=== PATIENT | female | born 1965 | race Caucasian/White ===

== ENCOUNTER 2017-03-17 09:25 | Inpatient (IN) | payer MEDICAID ==
[~2017-03-17] VITALS: Ht 165.1 cm; Wt 94.9 kg
[2017-03-17] MEDS ORDERED: METF500T4 PO (12:13)
[2017-03-17] MEDS ORDERED: LOSA25TA21 PO (12:13)
[2017-03-17] MEDS ORDERED: DULO20CA30 PO (12:13)
[2017-03-17 12:22] LABS: BASOPHILS % (AUTO) 0.2 % (0.0-2.0); HEMATOCRIT 44.1 % (36-46); HEMOGLOBIN 15.3 g/dL (12.0-16.0); LYMPHOCYTES # (AUTO) 1.3 K/uL (1.0-4.8); LYMPHOCYTES % (AUTO) 15.3 % (22.0-44.0); MEAN CORPUSCULAR HEMOGLOBIN 28.5 pg (26.0-34.0); MEAN CORPUSCULAR HGB CONC 34.6 G/dL (31.0-37.0); MEAN CORPUSCULAR VOLUME 82 fL (80-100); MONOCYTES # (AUTO) 0.4 K/uL (0.1-1.0); MONOCYTES % (AUTO) 4.4 % (2.0-9.0); NEUTROPHILS # (AUTO) 6.4 K/uL (1.8-7.7); NEUTROPHILS % (AUTO) 78.1 % (40.0-70.0); PLATELET COUNT (AUTO) 293 K/uL (150-450); RED BLOOD CELL COUNT(AUTO) 5.35 MIL/uL (4.00-5.20); RED CELL DISTRIBUTION WIDTH 14.5 % (11.5-14.5)
[2017-03-17] MEDS ORDERED: HALOPERIDOL 5 MG TABLET PO ONE (12:30)
[2017-03-17] MEDS ORDERED: LORazepam 2 MG TABLET PO ONE (12:30)
[2017-03-17 12:37] LABS: ANION GAP 8 mmol/L (8-16); CALCIUM, TOTAL 9.4 mg/dL (8.8-10.5); CARBON DIOXIDE 29 mmol/L (22-29); CHLORIDE 99 mmol/L (98-107); CREATININE 1.06 mg/dL (0.60-1.30); GLOMERULAR FILTR. RATE CALC 55 mL/min (>60); GLUCOSE,RANDOM 223 mg/dL (70-110); POTASSIUM 3.9 mmol/L (3.5-5.1); SODIUM SERUM 136 mmol/L (136-145); UREA NITROGEN, BLOOD 13 mg/dL (7-18)
[2017-03-17 12:38] LABS: AMPHET/METH SCREEN,URINE POSITIVE (NEGATIVE); BARBITURATE SCREEN, URINE NEGATIVE (NEGATIVE); BENZODIAZEPINES SCREEN,URINE NEGATIVE (NEGATIVE); CANNABINOID SCREEN,URINE NEGATIVE (NEGATIVE); COCAINE SCREEN,URINE NEGATIVE (NEGATIVE); METHADONE SCREEN, URINE NEGATIVE (NEGATIVE); OPIATE SCREEN,URINE NEGATIVE (NEGATIVE)
[2017-03-17 12:42] LABS: PHENCYCLIDINE SCREEN,URINE NEGATIVE (NEGATIVE)
[2017-03-17 12:42] LABS: ALANINE AMINOTRANSFERASE 40 U/L (12-78); ALBUMIN 3.8 g/dL (3.4-5.0); ALKALINE PHOSPHATASE 95 U/L (46-116); ASPARTATE AMINOTRANSFERASE 24 U/L (15-37); BILIRUBIN,TOTAL 0.7 mg/dL (0.1-1.0); TOTAL PROTEIN, SERUM 8.1 g/dL (6.4-8.2)
[2017-03-17 12:47] LABS: APPEARANCE,URINE CLOUDY (CLEAR); GLUCOSE, URINE (UA) 100 mg/dL (NEGATIVE); KETONES,URINE TRACE mg/dL (NEGATIVE); LEUKOCYTE ESTERASE ,URINE TRACE (NEGATIVE); NITRATE,URINE NEGATIVE (NEGATIVE); OCCULT BLOOD,URINE NEGATIVE (NEGATIVE); PH,URINE 5.5 (5.0-8.0); PROTEIN,URINE NEGATIVE (NEGATIVE)
[2017-03-17 13:01] LABS: BILIRUBIN,URINE PRELIM. POSITIVE (NEGATIVE)
[2017-03-17 13:09] LABS: BACTERIA,URINE None Seen /HPF (None Seen); RBC,URINE 0-2 /HPF (0-2)
[2017-03-17 13:10] LABS: SQUAMOUS EPITHELIAL CELL,UR Moderate /LPF (None Seen)
[2017-03-17] MEDS ORDERED: HALOPERIDOL 5 MG TABLET PO PRN (13:30)
[2017-03-17] MEDS ORDERED: LORazepam 2 MG TABLET PO PRN (13:30)
[2017-03-17] MEDS ORDERED: ZOLPIDEM TARTRATE 10 MG TABLET PO PRN (13:30)
[2017-03-17 14:53] VITALS: BP 125/78
[2017-03-17] MEDS ORDERED: INFLUENZA VIRUS VACCINE QVS 2017-18 (3YR+)/PF 60 MCG/0.5 ML SYRINGE IM ONE (15:30)
[2017-03-17 16:03] VITALS: BP 124/82
[2017-03-17] MEDS ORDERED: ONDANSETRON HCL 4 MG TABLET PO PRN (19:15)
[2017-03-17] MEDS ORDERED: PETROLATUM,WHITE 71 GM JELLY TP PRN (19:15)
[2017-03-17] MEDS ORDERED: ALBUTEROL SULFATE HFA 90 MCG/PUFF 8 GM INHALER IH PRN (19:15)
[2017-03-17] MEDS ORDERED: LOPERAMIDE HCL 2 MG CAPSULE PO PRN (19:15)
[2017-03-17] MEDS ORDERED: CloNIDine HCL 0.1 MG TABLET PO PRN (19:15)
[2017-03-17] MEDS ORDERED: ACETAMINOPHEN 325 MG TABLET PO PRN (19:15)
[2017-03-17] MEDS ORDERED: BENZOCAINE/MENTHOL LOZENGE [8 LOZENGES/PACKET] MM PRN (19:15)
[2017-03-17] MEDS ORDERED: IBUPROFEN 600 MG TABLET PO PRN (19:15)
[2017-03-17] MEDS ORDERED: MAG HYDROX/AL HYDROX/SIMETH ES 30 ML SUSPENSION UDCUP PO PRN (19:15)
[2017-03-17] MEDS ORDERED: BACITRACIN 28.4 GM OINTMENT TP PRN (19:15)
[2017-03-17] MEDS ORDERED: DEXTROSE 50%-WATER 25 GM/50 ML SYRINGE IVP PRN (19:45)
[2017-03-17] MEDS: NITROFURANTOIN/NITROFURAN MAC 100 MG CAPSULE [MACROBID] PO SCH (20:13)
[2017-03-17] MEDS: MIRTAZAPINE 15 MG TABLET PO SCH (20:13)
[2017-03-17 20:17] LABS: GLUCOMETER DEV NAME(LOC) 3EI B; GLUCOSE,POINT OF CARE 249 MG/DL (70-110)
[2017-03-17] MEDS: INSULIN ASPART 100 UNITS/ML SQ PRN (21:30)
[2017-03-18 05:43] LABS: GLUCOMETER DEV NAME(LOC) 3EI B; GLUCOSE,POINT OF CARE 197 MG/DL (70-110)
[2017-03-18 09:04] LABS: CHOL/HDL RATIO 4.8 (3.9-5.7)
[2017-03-18 09:32] VITALS: BP 112/64
[2017-03-18] MEDS: OMEPRAZOLE 20 MG CAPSULE PO SCH (10:58)
[2017-03-18] MEDS: NITROFURANTOIN/NITROFURAN MAC 100 MG CAPSULE [MACROBID] PO SCH ×2 (10:58→16:54)
[2017-03-18] MEDS: ARIPiprazole 10 MG TABLET PO SCH (10:58)
[2017-03-18] MEDS: DOCUSATE SODIUM 100 MG CAPSULE PO SCH (10:58)
[2017-03-18 13:08] LABS: GLUCOMETER DEV NAME(LOC) 3EI B; GLUCOSE,POINT OF CARE 202 MG/DL (70-110)
[2017-03-18] MEDS: INSULIN ASPART 100 UNITS/ML SQ PRN ×2 (13:39→17:35)
[2017-03-18] MEDS: MetFORMIN HCL 500 MG TABLET PO SCH (16:54)
[2017-03-18] MEDS: LOSARTAN POTASSIUM 25 MG TABLET PO SCH (17:19)
[2017-03-18 19:10] VITALS: BP 124/78
[2017-03-18] MEDS: MIRTAZAPINE 15 MG TABLET PO SCH (20:45)
[2017-03-18] MEDS: HYDROCORTISONE 0.5% 30 GM CREAM TP SCH (21:12)
[2017-03-18 22:43] LABS: GLUCOMETER DEV NAME(LOC) 3EI B; GLUCOSE,POINT OF CARE 254 MG/DL (70-110)
[2017-03-19 05:37] LABS: GLUCOMETER DEV NAME(LOC) 3EI B; GLUCOSE,POINT OF CARE 159 MG/DL (70-110)
[2017-03-19] MEDS: MetFORMIN HCL 500 MG TABLET PO SCH ×2 (06:40→17:29)
[2017-03-19] MEDS: INSULIN ASPART 100 UNITS/ML SQ PRN ×4 (06:48→22:02)
[2017-03-19 09:00] VITALS: BP 102/62
[2017-03-19] MEDS: OMEPRAZOLE 20 MG CAPSULE PO SCH (09:07)
[2017-03-19] MEDS: LOSARTAN POTASSIUM 25 MG TABLET PO SCH ×2 (09:07→17:30)
[2017-03-19] MEDS: ARIPiprazole 10 MG TABLET PO SCH (09:07)
[2017-03-19] MEDS: DOCUSATE SODIUM 100 MG CAPSULE PO SCH (09:07)
[2017-03-19] MEDS: NITROFURANTOIN/NITROFURAN MAC 100 MG CAPSULE [MACROBID] PO SCH ×2 (09:07→17:30)
[2017-03-19] MEDS: HYDROCORTISONE 0.5% 30 GM CREAM TP SCH ×2 (09:08→17:28)
[2017-03-19 11:27] LABS: GLUCOMETER DEV NAME(LOC) 3EI B; GLUCOSE,POINT OF CARE 165 MG/DL (70-110)
[2017-03-19 17:18] VITALS: BP 144/93
[2017-03-19 17:43] LABS: GLUCOMETER DEV NAME(LOC) 3EI B; GLUCOSE,POINT OF CARE 161 MG/DL (70-110)
[2017-03-19] MEDS: MIRTAZAPINE 15 MG TABLET PO SCH (20:36)
[2017-03-19 20:48] LABS: GLUCOMETER DEV NAME(LOC) 3EI B; GLUCOSE,POINT OF CARE 186 MG/DL (70-110)
[2017-03-20 06:28] LABS: GLUCOMETER DEV NAME(LOC) 3EI B; GLUCOSE,POINT OF CARE 175 MG/DL (70-110)
[2017-03-20] MEDS: MetFORMIN HCL 500 MG TABLET PO SCH ×2 (06:35→16:40)
[2017-03-20] MEDS: INSULIN ASPART 100 UNITS/ML SQ PRN ×2 (06:53→17:44)
[2017-03-20] MEDS: LOSARTAN POTASSIUM 25 MG TABLET PO SCH ×2 (08:55→16:40)
[2017-03-20] MEDS: NITROFURANTOIN/NITROFURAN MAC 100 MG CAPSULE [MACROBID] PO SCH ×2 (08:55→16:40)
[2017-03-20] MEDS: ARIPiprazole 10 MG TABLET PO SCH (08:55)
[2017-03-20] MEDS: OMEPRAZOLE 20 MG CAPSULE PO SCH (08:55)
[2017-03-20] MEDS: DOCUSATE SODIUM 100 MG CAPSULE PO SCH (08:55)
[2017-03-20] MEDS: HYDROCORTISONE 0.5% 30 GM CREAM TP SCH ×2 (08:56→16:40)
[2017-03-20 09:00] VITALS: BP 143/79
[2017-03-20 11:28] LABS: GLUCOMETER DEV NAME(LOC) 3EI B; GLUCOSE,POINT OF CARE 148 MG/DL (70-110)
[2017-03-20 17:29] LABS: GLUCOMETER DEV NAME(LOC) 3EI B; GLUCOSE,POINT OF CARE 155 MG/DL (70-110)
[2017-03-20] MEDS: MIRTAZAPINE 15 MG TABLET PO SCH (20:36)
[2017-03-20 20:43] LABS: GLUCOMETER DEV NAME(LOC) 3EI B; GLUCOSE,POINT OF CARE 138 MG/DL (70-110)
[2017-03-20 21:49] VITALS: BP 135/74
[2017-03-21 06:23] LABS: GLUCOMETER DEV NAME(LOC) 3EI B; GLUCOSE,POINT OF CARE 169 MG/DL (70-110)
[2017-03-21] MEDS: MetFORMIN HCL 500 MG TABLET PO SCH ×2 (06:58→17:29)
[2017-03-21] MEDS: INSULIN ASPART 100 UNITS/ML SQ PRN ×3 (07:01→20:31)
[2017-03-21 08:00] VITALS: BP 119/57
[2017-03-21] MEDS: LOSARTAN POTASSIUM 25 MG TABLET PO SCH ×2 (09:23→16:46)
[2017-03-21] MEDS: NITROFURANTOIN/NITROFURAN MAC 100 MG CAPSULE [MACROBID] PO SCH ×2 (09:23→16:46)
[2017-03-21] MEDS: ARIPiprazole 10 MG TABLET PO SCH (09:23)
[2017-03-21] MEDS: DOCUSATE SODIUM 100 MG CAPSULE PO SCH (09:25)
[2017-03-21] MEDS: OMEPRAZOLE 20 MG CAPSULE PO SCH (09:25)
[2017-03-21] MEDS: MAGNESIUM HYDROXIDE SUSPENSION 30 ML UDCUP PO PRN ×2 (09:27→14:54)
[2017-03-21] MEDS: HYDROCORTISONE 0.5% 30 GM CREAM TP SCH ×2 (09:29→16:46)
[2017-03-21 11:33] LABS: GLUCOMETER DEV NAME(LOC) 3EI B; GLUCOSE,POINT OF CARE 133 MG/DL (70-110)
[2017-03-21 16:15] VITALS: BP 122/77
[2017-03-21 16:59] LABS: GLUCOMETER DEV NAME(LOC) 3EI B; GLUCOSE,POINT OF CARE 158 MG/DL (70-110)
[2017-03-21] MEDS: MIRTAZAPINE 15 MG TABLET PO SCH (20:29)
[2017-03-21 20:33] LABS: GLUCOMETER DEV NAME(LOC) 3EI B; GLUCOSE,POINT OF CARE 171 MG/DL (70-110)
[2017-03-21] MEDS ORDERED: MAGNESIUM CITRATE 300 ML ORAL SOLUTION PO ONE (21:00)
[2017-03-22 06:07] LABS: GLUCOMETER DEV NAME(LOC) 3EI B; GLUCOSE,POINT OF CARE 173 MG/DL (70-110)
[2017-03-22] MEDS: MetFORMIN HCL 500 MG TABLET PO SCH ×2 (06:51→16:53)
[2017-03-22] MEDS: INSULIN ASPART 100 UNITS/ML SQ PRN ×4 (06:51→21:24)
[2017-03-22 08:00] VITALS: BP 128/82
[2017-03-22] MEDS: HYDROCORTISONE 0.5% 30 GM CREAM TP SCH ×2 (09:00→16:52)
[2017-03-22] MEDS: ARIPiprazole 10 MG TABLET PO SCH (09:36)
[2017-03-22] MEDS: OMEPRAZOLE 20 MG CAPSULE PO SCH (09:36)
[2017-03-22] MEDS: DOCUSATE SODIUM 100 MG CAPSULE PO SCH (09:36)
[2017-03-22] MEDS: NITROFURANTOIN/NITROFURAN MAC 100 MG CAPSULE [MACROBID] PO SCH ×2 (09:37→16:52)
[2017-03-22] MEDS: LOSARTAN POTASSIUM 25 MG TABLET PO SCH ×2 (09:37→16:53)
[2017-03-22] MEDS: MAGNESIUM HYDROXIDE SUSPENSION 30 ML UDCUP PO PRN (09:37)
[2017-03-22 11:39] LABS: GLUCOMETER DEV NAME(LOC) 3EI B; GLUCOSE,POINT OF CARE 170 MG/DL (70-110)
[2017-03-22 17:03] LABS: GLUCOMETER DEV NAME(LOC) 3EI B; GLUCOSE,POINT OF CARE 223 MG/DL (70-110)
[2017-03-22] MEDS: MIRTAZAPINE 15 MG TABLET PO SCH (20:26)
[2017-03-22 20:33] LABS: GLUCOMETER DEV NAME(LOC) 3EI B; GLUCOSE,POINT OF CARE 172 MG/DL (70-110)
[2017-03-22 20:59] VITALS: BP 114/77
[2017-03-23 05:39] LABS: GLUCOMETER DEV NAME(LOC) 3EI B; GLUCOSE,POINT OF CARE 173 MG/DL (70-110)
[2017-03-23 06:06] VITALS: BP 137/86
[2017-03-23] MEDS: MetFORMIN HCL 500 MG TABLET PO SCH (07:01)
[2017-03-23] MEDS: INSULIN ASPART 100 UNITS/ML SQ PRN ×2 (07:06→11:32)
[2017-03-23 08:00] VITALS: BP 140/93
[2017-03-23] MEDS: ARIPiprazole 10 MG TABLET PO SCH (09:21)
[2017-03-23] MEDS: OMEPRAZOLE 20 MG CAPSULE PO SCH (09:22)
[2017-03-23] MEDS: NITROFURANTOIN/NITROFURAN MAC 100 MG CAPSULE [MACROBID] PO SCH (09:22)
[2017-03-23] MEDS: DOCUSATE SODIUM 100 MG CAPSULE PO SCH (09:22)
[2017-03-23] MEDS: LOSARTAN POTASSIUM 25 MG TABLET PO SCH (09:22)
[2017-03-23] MEDS: HYDROCORTISONE 0.5% 30 GM CREAM TP SCH (10:59)
[2017-03-23] MEDS ORDERED: MIRT15 PO (11:14)
[2017-03-23] MEDS ORDERED: ARIP10TA8 PO (11:14)
[2017-03-23] MEDS ORDERED: DSS100 PO (11:14)
[2017-03-23] MEDS ORDERED: OMEP20 PO (11:15)
[2017-03-23] MEDS ORDERED: MACR100 PO (11:15)
[2017-03-23] MEDS ORDERED: HC530C TP (11:16)
[2017-03-23 11:23] LABS: GLUCOMETER DEV NAME(LOC) 3EI B; GLUCOSE,POINT OF CARE 141 MG/DL (70-110)
== END 2017-03-23 16:10 | disposition home or self-care (01) | DRG 751 ==
LOC: EMS 09:26 → 3EI 13:32
PROVIDERS: ADMIT Psychiatry & Neurology Psychiatry; ATTEND Psychiatry & Neurology Psychiatry
DX: F23 Brief psychotic disorder (principal); E11.9 Type 2 diabetes mellitus without complications; I10 Essential (primary) hypertension; F15.10 Other stimulant abuse, uncomplicated; F17.210 Nicotine dependence, cigarettes, uncomplicated; F41.9 Anxiety disorder, unspecified; M79.7 Fibromyalgia; F79 Unspecified intellectual disabilities; K21.9 Gastro-esophageal reflux disease without esophagitis; N39.0 Urinary tract infection, site not specified; Z79.899 Other long term (current) drug therapy; Z82.49 Family history of ischemic heart disease and other diseases of the circulatory system; Z83.3 Family history of diabetes mellitus; Z91.19 Patient's noncompliance with other medical treatment and regimen; Z88.0 Allergy status to penicillin; Z79.84 Long term (current) use of oral hypoglycemic drugs
CPT/HCPCS: 80074; 82306; 82652; 82962; 83036; 96374; 99285; 99406; G0480